=== PATIENT | female | born 2000 | race Caucasian/White ===

== ENCOUNTER → 2022-06-13 10:43 | Outpatient (CLI) | payer OTHER, SELFPAY ==
--- NOTE | ~2022-06-13 | XR_ITS ---
EXAM: XR ankle RT min 3V DATE: 06/13/2022 11:11 HISTORY: 5th metatarsal pain after running a marathon last week . COMPARISON: None available. FINDINGS: Normal mineralization. No fracture or dislocation. Mild first MTP hallux valgus. Varus ali gnment of the fifth MTP, with overlying soft tissue swelling (the mirror image of hallux valgus and f irst MTP bunion formation) No lytic or blastic lesion. Joint spaces are maintained. No erosion or per iosteal change. Soft tissues within normal limits. IMPRESSION: No acute osseous finding in the right ankle or foot. Varus alignment of the fifth MTP wit h overlying soft tissue swelling, correlate with pain/tenderness. Reviewed, dictated and finalized at location K. IMPRESSION: No acute osseous finding in the right ankle or foot. Varus alignmen t of the fifth MTP with overlying soft tissue swelling, correlate with pain/ten derness.
--- NOTE | ~2022-06-13 | XR_ITS ---
EXAMINATION: XR foot RT min 3V DATE: 06/13/2022 11:11 INDICATION: Right foot pain TECHNIQUE: Dorsoplantar, lateral, and 2 oblique views of the right foot were obtained. COMPARISON: None. FINDINGS: Bone alignment is normal. No fracture is identified. There is mild lateral soft tissue swel ling of the foot. Joint spaces are normal. IMPRESSION: 1. Mild soft tissue swelling of the foot without acute osseous abnormality identified. Reviewed, dictated and finalized at location A. IMPRESSION: 1. Mild soft tissue swelling of the foot without acute osseous abnormality iden tified.
== END ==
PROVIDERS: PCP Physician Assistant; Visit Provider Physician Assistant
DX: M79.89 Other specified soft tissue disorders (principal)
CPT/HCPCS: 73610; 73630

== ENCOUNTER 2023-09-29 14:13 | Emergency (ER) | payer BC, SELFPAY ==
--- NOTE | ~2023-09-29 | XR_ITS ---
EXAMINATION: XR chest 2V Exam Date/Time: 09/29/2023 14:35 DROP MAN HISTORY: LEFT SIDED CHEST PAIN X1 YR, INCREASED SOB Comparison: None. RESULT: Lines, tubes, and devices: None. Lungs and pleura: No focal consolidation, pleural effusion, or pneumothorax. Granulomas calcificatio ns. Minimal left suprahilar scar. Cardiomediastinal silhouette: Stable. Other: No acute osseous or upper abdominal finding. IMPRESSION: No acute cardiopulmonary process. Reviewed, dictated and finalized at location K. MAN
--- NOTE | 2023-09-29 14:14 | ECG_ITS ---
Measurements Intervals [place] Rate: 64 P: 66 MO: 116 QRS: 45 QRSD: 94 T: 33 QT: 382 QTc: 396 Interpretive Statements SINUS RHYTHM WITH SINUS ARRHYTHMIA WITH SHORT MO INTERVAL POSSIBLE LEFT ATRIAL ENLARGEMENT INCOMPLETE RIGHT BUNDLE BRANCH BLOCK BASELINE ARTIFACT- I, III, AVL BORDERLINE ECG NO PREVIOUS ECG AVAILABLE FOR COMPARISON Electronically Signed On 09-29-2023 19:19:46 [employer] by Alireza Padilla D.O.
[2023-09-29 14:20] VITALS: BP 125/60; PULSE 63; RESP 16; TEMP 36.9; O2SAT 100
[2023-09-29 14:30] LABS: Basophils Percent Auto 0.4 % (0.2-1.2); Eosinophils Absolute Auto 0.1 K/mm3 (0-0.3); Eosinophils Percent Auto 1.5 % (0-4.4); Hematocrit 44.1 % (37.0-47.0); Hemoglobin 14.2 g/dL (12.0-15.0); Immature Granulocyte Absolute 0.01 K/mm3 (0.00-0.031); Immature Granulocyte Percent A 0.1 % (0-0.5); Lymphocytes Absolute Auto 2.65 K/mm3 (0.9-3.2); Lymphocytes Percent Auto 34.1 % (18.3-44.2); Mean Corpuscular HGB Conc 32.2 g/dl (32-36); Mean Corpuscular Hemoglobin 28.5 pg (26-34); Mean Corpuscular Volume 88.6 fl (80-100); Mean Platelet Volume 11.3 fl (7.4-10.4); Monocytes Absolute Auto 0.6 K/mm3 (0.1-0.6); Monocytes Percent Auto 8.1 % (2.6-8.5); Neutrophils Absolute Auto 4.3 K/mm3 (1.3-6.7); Neutrophils Percent Auto 55.8 % (45.5-73.1); Platelet Count Result 142 k/mm3 (150-375); Red Blood Count 4.98 M/mm3 (4.2-5.4); Red Cell Distribution Width 12.6 % (11.5-14.5); White Blood Count 7.8 K/mm3 (4.5-10.0)
[2023-09-29 14:39] LABS: Prothrombin Time 13.8 Seconds (11.1-14.7)
[2023-09-29 14:40] LABS: Partial Thromboplastin Time 33.3 SECONDS (22.3-36.8)
[2023-09-29 14:49] LABS: Alanine Aminotransferase 14 U/L (6-35); Albumin Level 4.7 g/dL (3.5-5.1); Alkaline Phosphatase 51 U/L (38-126); Anion Gap 8 mmol/L (8-16); Aspartate Amino Transferase 25 U/L (14-36); Bilirubin,Total 0.6 mg/dL (0.2-1.3); Blood Urea Nitrogen 17 mg/dL (7-17); Calcium 9.6 mg/dL (8.4-10.2); Carbon Dioxide 27 mmol/L (22-30); Chloride 103 mmol/L (98-107); Estimated CRCL calculation 101 ml/min; Estimated Glomerular Filt Rate > 60; Glucose 81 mg/dL (65-110); Lipase 96 U/L (23-300); Potassium 4.3 mmol/L (3.4-5.0); Sodium 138 mmol/L (137-145)
[2023-09-29 14:54] LABS: Troponin I < 0.012 ng/mL (0.000-0.034)
--- NOTE | 2023-09-29 20:25 | ED.GENADULT ---
[facility] - General Adult General Chief complaint: Chest Pain Stated complaint: chest pain Time Seen by Provider: 09/29/23 20:17 Source: patient Mode of arrival: ambulatory Limitations: no limitations History of Present Illness HPI narrative: This is a 23-year-old female who presents to the ED with chief complaint of acute on chronic left-sided chest pain. Reports that she was having some intermittent chest pains last night and today. She went on a run and started to notice the pain in her left side of the chest was worse so she came here. Minimal relief with Tylenol or ibuprofen. Denies recent illness, cough, fever, chills, shortness of breath, leg swelling, palpitations, abdominal pain, vomiting, syncope. Pain does not radiate. States she has a lot of extreme anxiety and feels that this could be causing her pains. Chart has shows estrogen contraceptive listed in her med list but states she never actually took this. She has never been on any estrogen containing meds. No history of blood clots, immobilization or hospitalization. Related Data Allergies Allergy/AdvReac Type Severity Reaction Status Date / Time Latex, Natural Rubber AdvReac Intermediate Itching Verified 04/17/23 10:01 Review of Systems Review of Systems: All systems as dictated in [facility] Surgical History Surgical History [place] teeth removed Social History Social History (Updated 04/17/23 @ 10:03 by Jazzmine Parmar MA) Smoking status: Never smoker Alcohol intake: never Substance use: never Lack of Transportation: No Lack of Food: Never True Current Housing: I Have Housing Concerned About Future Housing: No Difficulty Paying Gas/Electric Bills: No Difficulty Paying for Meds: No Currently Unemployed: No Education: Associate Degree Difficulty w/ Childcare or Family Care: No Living arrangements: with friend(s) Occupation/Education: occupation Gender identity (if verbalized by the patient): Female Sexual Orientation (if Verbalized by the Patient): Straight or Heterosexual Spiritual care concerns: No Agree to blood products: No Exam Narrative: GENERAL: Well-appearing, well-nourished, and in no acute distress. HEAD: Normocephalic, atraumatic. EYES: PERRLA and EOMI. ENT: Nares clear, no rhinorrhea or epistaxis. Mucous membranes moist. Oropharynx without tonsillar hypertrophy exudate or other lesions. NECK: Supple. No adenopathy or masses. CHEST: No respiratory distress. Clear to auscultation. No wheezes rales or rhonchi HEART: Regular rate and rhythm. No murmur heard. Normal peripheral pulses. ABDOMEN: Soft, nontender, nondistended, normal active bowel sounds. MSK: Normal range of motion. No edema. SKIN: Warm, dry, no rash. NEURO: Alert and oriented x3. No focal deficits. PSYCH: Normal mood and affect. Course Vital Signs Vital signs: Vital Signs Temperature 98.5 F 09/29/23 14:20 Pulse Rate 63 09/29/23 14:20 Respiratory Rate 16 09/29/23 14:20 Blood Pressure 125/60 09/29/23 14:20 Pulse Oximetry 100 09/29/23 14:20 Temperature 98.5 F 09/29/23 14:20 Pulse Rate 78 09/29/23 21:19 Respiratory Rate 18 09/29/23 21:19 Blood Pressure 115/68 09/29/23 21:19 Pulse Oximetry 99 09/29/23 21:19 Oxygen Delivery Room Air 09/29/23 20:42 Medical Decision Making MDM Narrative Medical decision making narrative: This is a 23-year-old female who presents to the ED with chief complaint of acute on chronic left-sided chest pain. Vitals are normal. Exam is benign. EKG shows normal sinus rhythm. PERC rule negative. Serial troponins are negative. Lab work is grossly benign. Chest x-ray negative. Heart score 1. Chief feels asymptomatic on re-evaluation. She is ready to go home. Pt will be discharged in stable condition. Return precautions given and supportive measures discussed. Pt is understanding and agreeabl
[2023-09-29 20:34] VITALS: PULSE 70; RESP 28; O2SAT 100
[2023-09-29 20:40] VITALS: O2SAT 100
[2023-09-29 20:42] VITALS: O2SAT 100
[2023-09-29 20:50] LABS: Troponin I < 0.012 ng/mL (0.000-0.034)
[2023-09-29 21:19] VITALS: BP 115/68; PULSE 78; RESP 18; O2SAT 99
== END 2023-09-29 21:21 | disposition home or self-care (01) ==
PROVIDERS: Emergency Medicine; Emergency Provider Physician Assistant; PCP Physician Assistant
DX: R07.89 Other chest pain (principal); R94.31 Abnormal electrocardiogram [ECG] [EKG]
CPT/HCPCS: 36415; 71046; 80053; 81025; 83690; 84484; 85025; 85610; 85730; 93005; 99284